=== PATIENT | female | born 1970 | race Caucasian/White ===

== ENCOUNTER 2019-11-27 13:43 | Outpatient (CLI) | payer OTHER ==
--- NOTE | 2019-11-27 15:03 | MMO ---
Bilateral MAMMO Bilat Diag [facility]. CLINICAL HISTORY: Patient is 49 years old and is seen for diagnostic exam. The patient has the following family history of breast cancer: mother, at age 45. The patient has a history of malignant (generic) in the left breast at age 31. The patient has a history of left Lumpectomy in March, - malignant and left Lumpectomy in January, - fibroadenoma. VIEWS: The views performed were: bilateral craniocaudal with tomosynthesis; bilateral mediolateral oblique with tomosynthesis; and bilateral mediolateral with tomosynthesis. FILMS COMPARED: The present examination has been compared to prior imaging studies performed at [facility] on 05/29/2010 and 11/27/2019. This study has been interpreted with the assistance of computer-aided detection. MAMMOGRAM FINDINGS: The breasts are heterogeneously dense, which could obscure a lesion on mammography. Finding 1: There are benign appearing calcifications seen in both breasts. Finding 2: There is a post-surgical scar seen in the left breast. There are no suspicious masses, suspicious calcifications, or new areas of architectural distortion. IMPRESSION: THERE IS NO MAMMOGRAPHIC EVIDENCE OF MALIGNANCY. A ROUTINE FOLLOW-UP MAMMOGRAM IN 1 YEAR IS RECOMMENDED. THE RESULTS OF THIS EXAM WERE SENT TO THE PATIENT. ACR BI-RADS Category 2 - Benign finding MAMMOGRAPHY NOTE: 1. A negative mammogram report should not delay a biopsy if a dominant of clinically suspicious mass is present. 2. Approximately 10% to 15% of breast cancers are not detected by mammography. 3. Adenosis and dense breasts may obscure an underlying neoplasm. Reported by: WALLY RUTH MD Electonically Signed: [id number]
--- NOTE | 2019-11-27 15:16 | ULT ---
BILATERAL BREAST SONOGRAM: HISTORY: Left breast cancer. Right breast lump. FINDINGS: Sonographic evaluation of the superolateral aspect of the right breast in the region of palpable conc varun shows scattered fibroglandular densities. No solid or cystic masses. No areas of shadowing. Sonographic survey of the left breast shows scattered fibroglandular densities. Parenchymal scarring from prior surgery. No solid or cystic masses. No suspicious shadowing. IMPRESSION: 1. Postoperative changes left breast. No significant abnormalities of either breast demonstrated. 2. BIRADS category 2. Benign findings. Please see separate report for diagnosis mammography perfor med on the same date. POS: [facility]
== END 2019-11-27 13:44 | disposition home or self-care (01) ==
LOC: BICMAMMO 13:43
PROVIDERS: ATTEND Internal Medicine Medical Oncology
DX: Z08 Encounter for follow-up examination after completed treatment for malignant neoplasm (principal); Z85.3 Personal history of malignant neoplasm of breast
CPT/HCPCS: 77066; G0279

== ENCOUNTER 2020-12-12 14:46 | Outpatient (CLI) | payer OTHER ==
--- NOTE | 2020-12-12 16:43 | MRI ---
EXAM: MRI of the breasts without and with contrast HISTORY: BRCA 1 positive. Status post left breast cancer status post lumpectomy, radiation, and chemo therapy. Family history of breast cancer. Palpable masses in both breasts. COMPARISON: Mammogram and ultrasound 11/27/2019 TECHNIQUE: Multiplanar multisequence MR images were obtained of the breasts without and with IV contr ast. 3-D MIP reformats and contrast enhancement curves were generated on a [employer] workstation. FINDINGS: Diffusely dense breast parenchyma is seen. Minimal background parenchymal enhancement is seen. Vitamin E tablets are placed at the areas of palpable concern in the outer aspect of the right breast and upper aspect of the left breast. There is a 1.2 cm spiculated mass with rim-like enhancement in the upper aspect of the left central b reast. This demonstrates a type II plateau enhancement curve. This mass was not seen on the prior mammogram. No abnormal enhancement is seen in the right breast. No axillary adenopathy is seen. No internal mammary lymph nodes are identified. The visualized liver is unremarkable. The visualized bones are unremarkable. IMPRESSION: BI-RADS Category 4-suspicious findings. A repeat bilateral mammogram and second look left breast ultr asound is recommended for evaluation of the spiculated mass in the left breast to see if this would be amenable for ultrasound-guided biopsy.
== END 2020-12-12 14:47 | disposition home or self-care (01) ==
LOC: BICMRI 14:46
PROVIDERS: ATTEND Internal Medicine Medical Oncology
DX: C50.912 Malignant neoplasm of unspecified site of left female breast (principal); Z15.01 Genetic susceptibility to malignant neoplasm of breast
CPT/HCPCS: A9577; C8908

== ENCOUNTER → 2020-12-26 | Day surgery (SDC) | payer OTHER ==
--- NOTE | 2020-12-26 13:09 | ULT ---
US Breast Limited Lt: 12/26/2020 12:00 AM CLINICAL INDICATION: 12:00 left breast suspicious mass on MRI. COMPARISON: MRI of the breasts to 1221 TECHNIQUE: Multiplanar grayscale and color Doppler images were obtained of the breast. FINDINGS: There is a suspicious shadowing spiculated mass at the 12:00 position of the left breast approximatel y 2 cm from the nipple measuring 1.1 cm in greatest dimension. IMPRESSION: BI-RADS Category 4-suspicious findings. An ultrasound-guided biopsy is recommended.
--- NOTE | 2020-12-26 13:46 | MMO ---
FILMS COMPARED: The present examination has been compared to prior imaging studies performed at [facility] on 11/27/2019, 12/12/2020 and 12/26/2020. MAMMOGRAM FINDINGS: The breast is heterogeneously dense, which could obscure a lesion on mammography. There is an irregular mass with spiculated margins and associated biopsy clip seen in the left breast at 12 o'clock. IMPRESSION: MASS IN THE LEFT BREAST IS CONFIRMED UTILIZING POST PROCEDURE MAMMOGRAM. Reported by: CARMEN MOORE MD Electonically Signed: [id number]
--- NOTE | 2020-12-26 13:50 | ULT ---
PREPROCEDURE DIAGNOSIS: Left 12:00 breast mass POST PROCEDURE DIAGNOSIS: Same PROCEDURE: Ultrasound-guided left 12:00 breast mass biopsy FACTORY FOCUS TECHNICIAN: Princess ANESTHESIA: 11 mL of buffered 1% lidocaine. SPECIMEN: 5 -14-gauge core biopsy specimens TECHNIQUE: Prior to the procedure, the risks and benefits of an ultrasound guided breast mass biopsy were explai refugio to the patient which consented fully to the procedure. The patient's breast mass was again identified with ultrasound. This breast was prepped and draped in the usual sterile fashion. Lidocaine was used to anesthetize the skin and soft tissues surrounding the mass. A small skin incis ion was made allowing for passage of the core biopsy device. This device was then placed using ultrasound guidance and multiple specimens were obtained of the mass. The specimens were placed in formalin. At the completion of the procedure, a biopsy clip was placed i mmediately adjacent to the mass. A postprocedural mammogram was performed showing the biopsy clip immediately adjacent to the left 12: 00 breast mass. The patient tolerated the procedure well without immediate post procedure complication. IMPRESSION: Status post ultrasound-guided breast mass biopsy.
== END ==
LOC: BICULT 12:50
PROVIDERS: ATTEND Internal Medicine Medical Oncology
PROC: 0H9U0ZX Drainage of Left Breast, Open Approach, Diagnostic (ICD-10-PCS; principal; 2020-12-26)
DX: C50.812 Malignant neoplasm of overlapping sites of left female breast (principal); Z88.2 Allergy status to sulfonamides
CPT/HCPCS: 19083; 88305; 88341; 88342

== ENCOUNTER 2021-02-11 13:41 | Outpatient (CLI) | payer OTHER ==
[2021-02-11 14:38] LABS: #Basophils 0.1 10x3/uL (0.0-0.2); #Eosinphils 0.3 10x3/uL (0.0-0.5); #Monocytes 0.8 10x3/uL (0.0-1.1); #Neutrophils 5.2 10x3/uL (1.5-8.4); %Eosinophils 2.8 % (0.0-6.0); %Lymphocytes 30.9 % (18.0-47.0); %Monocytes 8.9 % (0.0-10.0); %Neutrophils 55.8 % (40.0-75.0); Hemoglobin 13.3 g/dL (12.0-15.5); Mean Corpuscular HGB CONC 32.9 g/dL (32.0-36.0); Mean Corpuscular Hemoglobin 29.9 pg (27.0-33.0); Mean Corpuscular Volume 90.8 fl (81.6-98.3); Mean Platelet Volume 9.6 fl (7.4-10.4); Platelet Count 351 10x3/uL (150-450); RBC Distribution Width 12.1 % (11.5-14.5); Red Blood Cell (RBC) Count 4.45 10x6/uL (3.90-5.03); White Blood Cell (WBC) Count 9.4 10x3/uL (3.5-10.5)
[2021-02-11 14:57] LABS: Anion Gap 19 mmol/L (10-20); BUN (Urea Nitrogen) 18 mg/dL (9.8-20.1); Calc. Creatinine Clearance 0 mL/min (70-130); Calcium 9.8 mg/dL (7.8-10.44); Carbon Dioxide 23 mmol/L (22-29); Chloride 103 mmol/L (98-107); Glucose 90 mg/dL (70-105); Potassium 4.6 mmol/L (3.5-5.1); Sodium 140 mmol/L (136-145)
[2021-02-12 04:12] LABS: SARS-CoV-2 PCR by NAA Not Detected (NotDetected)
== END 2021-02-11 13:42 | disposition home or self-care (01) ==
LOC: LABBT 13:41
PROVIDERS: ATTEND Specialist
DX: Z01.812 Encounter for preprocedural laboratory examination (principal); C50.912 Malignant neoplasm of unspecified site of left female breast; Z20.822 Contact with and (suspected) exposure to COVID-19
CPT/HCPCS: 80048; 85025; 87635; U0003; U0005

== ENCOUNTER 2021-02-13 10:02 | Outpatient (CLI) | payer OTHER ==
[~2021-02-13 10:02] MED LIST: Iopamidol 370 76% 100 ML VIAL ONE
== END 2021-02-13 10:03 | disposition home or self-care (01) ==
LOC: CT 10:02
PROVIDERS: ATTEND Internal Medicine Hematology & Oncology
DX: C50.412 Malignant neoplasm of upper-outer quadrant of left female breast (principal); N63.20 Unspecified lump in the left breast, unspecified quadrant
CPT/HCPCS: 71260; 74177; 78306; A9503; Q9967

== ENCOUNTER 2021-02-16 06:01 | Day surgery (SDC) | payer OTHER ==
[2021-02-13 09:43] VITALS: BMI 22.6
[2021-02-16] MEDS ORDERED: PROPOFOL 40 ML ONE (06:24)
[2021-02-16] MEDS ORDERED: Midazolam HCl 2 mg/2 ml Vial ONE (06:24)
[2021-02-16] MEDS ORDERED: Famotidine/PF 20 mg/2ml Vial ONE (06:24)
[2021-02-16] MEDS ORDERED: Fentanyl 100 MCG/2 ML VIAL ONE (06:24)
[2021-02-16] MEDS ORDERED: Ketorolac Tromethamine 30 MG/ML VIAL ONE (06:32)
[2021-02-16] MEDS ORDERED: Acetaminophen 500 MG TAB ONE (06:32)
[2021-02-16] MEDS ORDERED: Bupivacaine 0.25% HCL 30 ML VIAL ONE (06:34)
[2021-02-16] MEDS ORDERED: Lidocaine 2% w/Epinephrine 1:200K 20 ML VIAL ONE (06:34)
[2021-02-16] MEDS ORDERED: Ondansetron PF 4 MG/2 ML Vial ONE ×2 (07:05→08:05)
[2021-02-16] MEDS ORDERED: Dexamethasone 4 mg/ml Vial ONE (07:05)
[2021-02-16] MEDS ORDERED: Metoclopramide HCl 10 MG/2 ML VIAL ONE ×2 (07:05→08:05)
[2021-02-16] MEDS ORDERED: Lidocaine 1% PF 5 ML VIAL ONE (08:05)
[2021-02-16] MEDS ORDERED: Dexamethasone 20 MG/5 ML VIAL ONE (08:05)
[2021-02-16] MEDS ORDERED: PHENYLEPHRINE-NS 100 MCG/ML 10 ML SYRINGE ONE (08:05)
== END 2021-02-16 09:39 | disposition home or self-care (01) ==
LOC: SDC 06:01
PROVIDERS: ATTEND Specialist
PROC: 02HV33Z Insertion of Infusion Device into Superior Vena Cava, Percutaneous Approach (ICD-10-PCS; principal; 2021-02-16)
DX: C50.912 Malignant neoplasm of unspecified site of left female breast (principal); J45.909 Unspecified asthma, uncomplicated; E78.5 Hyperlipidemia, unspecified; Z17.1 Estrogen receptor negative status [ER-]; Z79.899 Other long term (current) drug therapy; Z88.2 Allergy status to sulfonamides; Z91.041 Radiographic dye allergy status
CPT/HCPCS: 71045; C1788; J0690; J1100; J1642; J1885; J2250; J2405; J2704; J2765; J3010; S0020; S0028

== ENCOUNTER 2021-02-26 18:19 | Observation (INO) | payer OTHER ==
[2021-02-26 18:50] LABS: Hemoglobin 11.9 g/dL (12.0-16.0); Mean Corpuscular Hemoglobin 29.8 pg (27.0-31.0); Mean Corpuscular Volume 90.2 fL (78.0-98.0); Mean Platelet Volume 7.2 fL (7.4-10.4); Platelet Count 275 thou/uL (130-400); RBC Distribution Width 11.3 % (11.5-14.5); Red Blood Cell (RBC) Count 3.99 mill/uL (4.20-5.40); White Blood Cell (WBC) Count 43.4 thou/uL (4.8-10.8)
[2021-02-26 18:52] LABS: Prothrombin Time 12.2 sec (12.0-14.7)
[2021-02-26 18:54] LABS: INR-International Normal Ratio 0.9
[2021-02-26 19:06] LABS: Band 11 % (5-11); Lymphocytes 15 % (21-51); MDiff Complete? YES; Metamyelocyte 7 % (0-0); Monocytes 3 % (0-10); Myelocyte 5 % (0-0); Neutrophil 57 % (42-75); Nucleated RBC 1 % (0); Platelet Morphology Comment Appears Adequate; Polychromasia SLIGHT = 2-3 cells (100X) (0-2/hpf); Promyelocytes 1 % (0-0); Reactive Lymphocytes 1 % (0-10)
[2021-02-26 19:24] LABS: ALT (SGPT) 50 U/L (8-55); AST (SGOT) 33 U/L (5-34); Albumin 4.1 g/dL (3.5-5.0); Alkaline Phosphatase 93 U/L (40-110); Anion Gap 18 mmol/L (10-20); BUN (Urea Nitrogen) 17 mg/dL (9.8-20.1); Bilirubin, Total 0.3 mg/dL (0.2-1.2); Calc. Creatinine Clearance 0 mL/min (70-130); Calcium 8.9 mg/dL (7.8-10.44); Carbon Dioxide 21 mmol/L (22-29); Chloride 99 mmol/L (98-107); Globulin 3.3 g/dL (2.4-3.5); Glucose 98 mg/dL (70-105); Potassium 3.6 mmol/L (3.5-5.1); Protein, Total 7.4 g/dL (6.0-8.3); Sodium 134 mmol/L (136-145)
[2021-02-26] MEDS ORDERED: cefTRIAXone\\ROCEPHIN 2 GM VIAL ONE (19:28)
[2021-02-26 19:30] LABS: Bilirubin Negative (Negative); Blood, Urine Negative (Negative); Clarity Clear (Clear); Glucose, Urine (Dipstick) Normal (Negative); Ketone, Urine Negative (Negative); Leukocyte Negative Leu/uL (Negative); Nitrite Negative (Negative); Protein, Urine (Dipstick) Negative (Neg-Trace); Specific Gravity, Urine 1.007 (1.002-1.036); Urobilinogen Normal mg/dL (Less than 2)
[2021-02-26] MEDS ORDERED: Ondansetron ODT 4 MG TAB PO PRN (21:29)
[2021-02-26] MEDS ORDERED: Acetaminophen 325 MG TAB PO PRN (21:29)
[2021-02-26] MEDS ORDERED: Ondansetron PF 4 MG/2 ML Vial IVP PRN (21:29)
[2021-02-26] MEDS ORDERED: Citalopram 10 MG TAB PO SCH (23:15)
[2021-02-27 00:27] LABS: Troponin I Less than 0.010 ng/mL (< 0.028)
[2021-02-27 01:06] VITALS: BMI 22.7
[2021-02-27 03:44] LABS: SARS-CoV-2 NAA Rapid Test Not Detected (NotDetected)
[2021-02-27 05:33] LABS: Hemoglobin 11.4 g/dL (12.0-16.0); Mean Corpuscular HGB CONC 33.9 g/dL (32.0-36.0); Mean Corpuscular Hemoglobin 30.7 pg (27.0-31.0); Mean Corpuscular Volume 90.6 fL (78.0-98.0); Mean Platelet Volume 7.3 fL (7.4-10.4); Platelet Count 236 thou/uL (130-400); RBC Distribution Width 11.3 % (11.5-14.5); White Blood Cell (WBC) Count 37.6 thou/uL (4.8-10.8)
[2021-02-27 05:44] LABS: Lymphocytes 12 % (21-51); MDiff Complete? YES; Metamyelocyte 5 % (0-0); Monocytes 4 % (0-10); Neutrophil 79 % (42-75); Platelet Morphology Comment Appears Adequate
[2021-02-27 05:47] LABS: Anion Gap 11 mmol/L (10-20); BUN (Urea Nitrogen) 16 mg/dL (9.8-20.1); Calc. Creatinine Clearance 92 mL/min (70-130); Calcium 8.8 mg/dL (7.8-10.44); Carbon Dioxide 25 mmol/L (22-29); Cardiac Risk 3.5 (Less than 4.5); Chloride 106 mmol/L (98-107); Cholesterol 166 mg/dl (< 200 Desired); Glucose 96 mg/dL (70-105); HDL Cholesterol 48 mg/dL (>60 Neg Risk); LDL Cholesterol, Calculated 95 mg/dL; Sodium 138 mmol/L (136-145); Triglycerides 114 mg/dL (Less than 150)
[2021-02-27] MEDS ORDERED: Citalopram 10 MG TAB PO SCH ×2 (09:00)
[2021-02-27] MEDS ORDERED: Aspirin 81 mg Enteric Coated Tablet PO SCH (09:00)
[2021-02-27] MEDS ORDERED: Enoxaparin Sodium 40 MG/0.4 ML SYRINGE SC SCH (09:00)
[2021-02-27] MEDS ORDERED: Magnevist 469MG/ML 20 ML VIAL ONE (15:30)
[2021-02-27 15:40] VITALS: BP 109/72; TEMP 98.3
[2021-02-27] MEDS ORDERED: Clindamycin 150 MG CAP PO SCH (17:00)
== END 2021-02-27 17:50 | disposition home or self-care (01) ==
LOC: ERS 18:19 → 2SE 20:48
PROVIDERS: ADMIT Student in an Organized Health Care Education/Training Program; ATTEND Student in an Organized Health Care Education/Training Program
DX: R20.2 Paresthesia of skin (principal); R47.01 Aphasia; N90.7 Vulvar cyst; J45.909 Unspecified asthma, uncomplicated; I07.1 Rheumatic tricuspid insufficiency; C50.412 Malignant neoplasm of upper-outer quadrant of left female breast; E78.5 Hyperlipidemia, unspecified; K21.9 Gastro-esophageal reflux disease without esophagitis; D72.828 Other elevated white blood cell count; T45.8X5A Adverse effect of other primarily systemic and hematological agents, initial encounter; Z17.1 Estrogen receptor negative status [ER-]; Z79.899 Other long term (current) drug therapy; Z88.1 Allergy status to other antibiotic agents; Z88.2 Allergy status to sulfonamides; Z91.041 Radiographic dye allergy status; Z20.822 Contact with and (suspected) exposure to COVID-19
CPT/HCPCS: 36415; 36416; 70450; 70553; 71045; 80048; 80053; 80061; 81003; 83735; 83880; 84484; 85025; 85060; 85610; 85730; 87040; 87086; 93005; 93306; 93880; 95712; 95819; 95957; 96365; 96372; A9579; G0378; J0696; J1650; U0002

== ENCOUNTER 2021-05-22 09:32 | Outpatient (CLI) | payer OTHER | END 2021-05-22 09:33 | disposition home or self-care (01) | LOC: BICMAMMO 09:32 | PROVIDERS: ATTEND Surgery | DX: C50.812 Malignant neoplasm of overlapping sites of left female breast (principal); Z80.3 Family history of malignant neoplasm of breast | CPT/HCPCS: 77066; G0279 ==

== ENCOUNTER 2021-06-07 19:41 | Emergency (ER) | payer OTHER ==
[~2021-06-07 19:41] MED LIST changes: -Iopamidol 370 76% 100 ML VIAL ONE; +Iopamidol-370 76% 500 ML 1 ML ONE
[2021-06-07 21:04] LABS: ALT (SGPT) 24 U/L (8-55); AST (SGOT) 20 U/L (5-34); Albumin 4.1 g/dL (3.5-5.0); Alkaline Phosphatase 81 U/L (40-110); Anion Gap 11 mmol/L (10-20); BUN (Urea Nitrogen) 15 mg/dL (9.8-20.1); Bilirubin, Total 0.4 mg/dL (0.2-1.2); Calc. Creatinine Clearance 0 mL/min (70-130); Calcium 8.9 mg/dL (7.8-10.44); Carbon Dioxide 28 mmol/L (22-29); Chloride 102 mmol/L (98-107); Globulin 2.6 g/dL (2.4-3.5); Glucose 91 mg/dL (70-105); Potassium 4.1 mmol/L (3.5-5.1); Protein, Total 6.7 g/dL (6.0-8.3); Sodium 137 mmol/L (136-145)
[2021-06-07 21:21] LABS: Hemoglobin 10.6 g/dL (12.0-16.0); Mean Corpuscular HGB CONC 34.3 g/dL (32.0-36.0); Mean Platelet Volume 7.1 fL (7.4-10.4); Platelet Count 216 thou/uL (130-400); RBC Distribution Width 13.6 % (11.5-14.5); Red Blood Cell (RBC) Count 3.03 mill/uL (4.20-5.40); White Blood Cell (WBC) Count 6.3 thou/uL (4.8-10.8)
[2021-06-07 21:46] LABS: Band 6 % (5-11); Lymphocytes 25 % (21-51); MDiff Complete? YES; Macrocytosis SLIGHT = 6-15 cells (100X) (0-5/hpf); Metamyelocyte 1 % (0-0); Monocytes 5 % (0-10); Neutrophil 63 % (42-75); Platelet Morphology Comment Appears Adequate
[2021-06-07] MEDS ORDERED: diphenhydrAMINE 25 MG CAP ONE (22:11)
[2021-06-07] MEDS ORDERED: methylPREDNISolone Sod Succ/PF 125 MG/2 ML VIAL ONE (22:11)
== END 2021-06-08 00:45 | disposition home or self-care (01) ==
LOC: ERS 19:41
DX: R00.2 Palpitations (principal); J45.909 Unspecified asthma, uncomplicated; Z79.899 Other long term (current) drug therapy
CPT/HCPCS: 71045; 71275; 80053; 83735; 84443; 84484; 85025; 85379; 93005; 94760; 96374; 96375; J2930; Q0163

== ENCOUNTER 2021-07-07 13:10 | Outpatient (CLI) | payer OTHER ==
[2021-07-07 13:54] LABS: #Eosinphils 0.1 10x3/uL (0.0-0.5); #Monocytes 0.5 10x3/uL (0.0-1.1); #Neutrophils 3.6 10x3/uL (1.5-8.4); %Basophils 0.4 % (0.0-2.0); %Lymphocytes 19.3 % (18.0-47.0); %Monocytes 10.1 % (0.0-10.0); Hemoglobin 11.2 g/dL (12.0-15.5); Mean Corpuscular HGB CONC 31.8 g/dL (32.0-36.0); Mean Corpuscular Hemoglobin 32.7 pg (27.0-33.0); Mean Corpuscular Volume 102.6 fl (81.6-98.3); Mean Platelet Volume 8.4 fl (7.4-10.4); Platelet Count 216 10x3/uL (150-450); RBC Distribution Width 13.2 % (11.5-14.5); Red Blood Cell (RBC) Count 3.43 10x6/uL (3.90-5.03); White Blood Cell (WBC) Count 5.2 10x3/uL (3.5-10.5)
[2021-07-07 14:11] LABS: Anion Gap 15 mmol/L (10-20); BUN (Urea Nitrogen) 12 mg/dL (9.8-20.1); Calc. Creatinine Clearance 0 mL/min (70-130); Calcium 9.8 mg/dL (7.8-10.44); Carbon Dioxide 25 mmol/L (22-29); Chloride 105 mmol/L (98-107); Glucose 93 mg/dL (70-105); Potassium 4.8 mmol/L (3.5-5.1); Sodium 140 mmol/L (136-145)
[2021-07-08 11:16] LABS: SARS-CoV-2 PCR by NAA Not Detected (NotDetected)
== END 2021-07-07 13:11 | disposition home or self-care (01) ==
LOC: LABBT 13:10
PROVIDERS: ATTEND Specialist
DX: Z01.812 Encounter for preprocedural laboratory examination (principal); C50.912 Malignant neoplasm of unspecified site of left female breast; Z20.822 Contact with and (suspected) exposure to COVID-19
CPT/HCPCS: 80048; 85025; U0003; U0005

== ENCOUNTER 2021-07-09 07:41 | Day surgery (SDC) | payer OTHER ==
[2021-07-08 10:26] VITALS: BMI 25.0
[2021-07-09] MEDS ORDERED: Ketorolac Tromethamine 30 MG/ML VIAL ONE (11:18)
[2021-07-09] MEDS ORDERED: Acetaminophen 500 MG TAB ONE (11:18)
[2021-07-09] MEDS ORDERED: Midazolam HCl 2 mg/2 ml Vial ONE (11:39)
[2021-07-09] MEDS ORDERED: Fentanyl 100 MCG/2 ML VIAL ONE ×2 (11:39→14:28)
[2021-07-09] MEDS ORDERED: Lidocaine 1% w/Epinephrine 1:100K 30 ML VIAL ONE (11:41)
[2021-07-09] MEDS ORDERED: Bupivacaine 0.25% HCL 30 ML VIAL ONE (11:41)
[2021-07-09] MEDS ORDERED: Isosulfan Blue 50 MG/5 ML VIAL ONE (11:42)
[2021-07-09] MEDS ORDERED: PHENYLEPHRINE-NS 100 MCG/ML 10 ML SYRINGE ONE (12:16)
[2021-07-09] MEDS ORDERED: Lidocaine 1% PF 5 ML VIAL ONE (12:16)
[2021-07-09] MEDS ORDERED: PROPOFOL 200 MG/20 ML VIAL ONE (12:16)
[2021-07-09] MEDS ORDERED: Ondansetron PF 4 MG/2 ML Vial ONE (14:24)
== END 2021-07-09 16:17 | disposition home or self-care (01) ==
LOC: SDC 07:41
PROVIDERS: ATTEND Specialist
PROC: 0HBU0ZZ Excision of Left Breast, Open Approach (ICD-10-PCS; principal; 2021-07-09)
PROC: 07B60ZX Excision of Left Axillary Lymphatic, Open Approach, Diagnostic (ICD-10-PCS; principal; 2021-07-09)
DX: C50.812 Malignant neoplasm of overlapping sites of left female breast (principal); J45.909 Unspecified asthma, uncomplicated; E78.5 Hyperlipidemia, unspecified; Z17.1 Estrogen receptor negative status [ER-]; Z86.010 Personal history of colon polyps; Z79.899 Other long term (current) drug therapy; Z88.1 Allergy status to other antibiotic agents; Z88.2 Allergy status to sulfonamides; Z91.041 Radiographic dye allergy status
CPT/HCPCS: 76098; 78195; 88305; 88307; 88342; A9541; J0690; J1885; J2250; J2405; J2704; J3010; Q9968; S0020

== ENCOUNTER 2021-09-09 18:14 | Emergency (ER) | payer OTHER ==
[2021-09-09 19:10] LABS: #Eosinphils 0.2 thou/uL (0.0-0.7); #Lymphocytes 1.7 thou/uL (1.20-3.40); #Monocytes 0.5 thou/uL (0.11-0.59); #Neutrophils 3.1 thou/uL (1.40-6.50); %Basophils 0.5 % (0.0-1.0); %Eosinophils 3.7 % (0.0-10.0); %Lymphocytes 31.3 % (21.0-51.0); %Monocytes 8.3 % (0.0-10.0); %Neutrophils 56.3 % (42.0-75.0); Mean Corpuscular HGB CONC 34.5 g/dL (32.0-36.0); Mean Corpuscular Hemoglobin 31.8 pg (27.0-31.0); Mean Platelet Volume 6.6 fL (7.4-10.4); Platelet Count 269 thou/uL (130-400); RBC Distribution Width 11.9 % (11.5-14.5); Red Blood Cell (RBC) Count 3.79 mill/uL (4.20-5.40); White Blood Cell (WBC) Count 5.5 thou/uL (4.8-10.8)
[2021-09-09 19:30] LABS: ALT (SGPT) 16 U/L (8-55); AST (SGOT) 24 U/L (5-34); Albumin 4.3 g/dL (3.5-5.0); Alkaline Phosphatase 70 U/L (40-110); Anion Gap 16 mmol/L (10-20); BUN (Urea Nitrogen) 20 mg/dL (9.8-20.1); Bilirubin, Total 0.4 mg/dL (0.2-1.2); Calc. Creatinine Clearance 0 mL/min (70-130); Calcium 9.5 mg/dL (7.8-10.44); Carbon Dioxide 21 mmol/L (22-29); Chloride 102 mmol/L (98-107); Globulin 3.3 g/dL (2.4-3.5); Glucose 94 mg/dL (70-105); Potassium 4.3 mmol/L (3.5-5.1); Protein, Total 7.6 g/dL (6.0-8.3); Sodium 135 mmol/L (136-145)
[2021-09-09] MEDS ORDERED: diphenhydrAMINE 50 MG/ML VIAL ONE (20:08)
[2021-09-09] MEDS ORDERED: Famotidine/PF 20 mg/2ml Vial ONE (20:09)
[2021-09-09] MEDS ORDERED: methylPREDNISolone Sod Succ 40 MG VIAL ONE (20:09)
[2021-09-09] MEDS ORDERED: Ondansetron PF 4 MG/2 ML Vial ONE (21:11)
[2021-09-09 22:10] LABS: Bilirubin Negative (Negative); Blood, Urine Negative (Negative); Clarity Clear (Clear); Glucose, Urine (Dipstick) Normal (Negative); Ketone, Urine Negative (Negative); Leukocyte Negative Leu/uL (Negative); Nitrite Negative (Negative); Protein, Urine (Dipstick) Negative (Neg-Trace); Specific Gravity, Urine 1.013 (1.002-1.036); Urobilinogen Normal mg/dL (Less than 2); pH, Urine 6.5 (5.0-9.0)
== END 2021-09-09 23:10 | disposition home or self-care (01) ==
LOC: ERS 18:14
DX: E86.0 Dehydration (principal); R07.9 Chest pain, unspecified; R05.9 Cough, unspecified; R06.02 Shortness of breath; R10.9 Unspecified abdominal pain; R11.2 Nausea with vomiting, unspecified; J45.909 Unspecified asthma, uncomplicated; Z79.51 Long term (current) use of inhaled steroids; Z79.899 Other long term (current) drug therapy
CPT/HCPCS: 71045; 71275; 80053; 81003; 84484; 85025; 85379; 93005; 96374; 96375; J1200; J2405; J2920; Q9967; S0028

== ENCOUNTER 2021-12-07 09:27 | Outpatient (CLI) | payer OTHER | END 2021-12-07 09:28 | disposition home or self-care (01) | LOC: BICMRI 09:27 | PROVIDERS: ATTEND Family Medicine | DX: C50.912 Malignant neoplasm of unspecified site of left female breast (principal) | CPT/HCPCS: A9577; C8908 ==

== ENCOUNTER 2022-11-16 11:12 | Outpatient (CLI) | payer OTHER | END 2022-11-16 11:13 | disposition home or self-care (01) | LOC: SCSRAD 11:12 | PROVIDERS: ATTEND Family Medicine | DX: M54.50 Low back pain, unspecified (principal); M47.816 Spondylosis without myelopathy or radiculopathy, lumbar region | CPT/HCPCS: 72100 ==

== ENCOUNTER 2023-10-19 15:30 | Emergency (ER) | payer OTHER ==
[2023-10-19 16:17] LABS: #Eosinphils 0.1 thou/uL (0.0-0.7); #Monocytes 0.7 thou/uL (0.11-0.59); #Neutrophils 2.7 thou/uL (1.40-6.50); %Basophils 0.5 % (0.0-1.0); %Eosinophils 1.6 % (0.0-10.0); %Lymphocytes 18.4 % (21.0-51.0); %Monocytes 16.8 % (0.0-10.0); %Neutrophils 62.5 % (42.0-75.0); Hematocrit 38.9 % (36.0-47.0); Mean Corpuscular HGB CONC 33.4 g/dL (32.0-36.0); Mean Corpuscular Hemoglobin 29.6 pg (27.0-31.0); Mean Corpuscular Volume 88.6 fl (78.0-98.0); Mean Platelet Volume 9.4 fL (7.4-10.4); Platelet Count 243 10x3/uL (130-400); RBC Distribution Width 12.5 % (11.5-14.5); Red Blood Cell (RBC) Count 4.39 mill/uL (4.20-5.40); White Blood Cell (WBC) Count 4.3 10x3/uL (4.8-10.8)
[2023-10-19 16:42] LABS: ALT (SGPT) 22 U/L (8-55); AST (SGOT) 26 U/L (5-34); Albumin 4.8 g/dL (3.5-5.0); Alkaline Phosphatase 79 U/L (40-110); Anion Gap 14 mmol/L (10-20); BUN (Urea Nitrogen) 17 mg/dL (9.8-20.1); Bilirubin, Total 0.3 mg/dL (0.2-1.2); Calc. Creatinine Clearance 0 mL/min (70-130); Calcium 9.2 mg/dL (7.8-10.44); Carbon Dioxide 26 mmol/L (22-29); Chloride 102 mmol/L (98-107); Estimated GFR 77; Globulin 3.6 g/dL (2.4-3.5); Glucose 107 mg/dL (70-105); Lipase 54 U/L (8-78); Potassium 3.7 mmol/L (3.5-5.1); Protein, Total 8.4 g/dL (6.0-8.3); Sodium 138 mmol/L (136-145)
[2023-10-19] MEDS ORDERED: Morphine 4 MG/ML VIAL ONE (16:49)
[2023-10-19] MEDS ORDERED: Ketorolac Tromethamine 30 MG/ML VIAL ONE (16:50)
[2023-10-19] MEDS ORDERED: Ondansetron PF 4 MG/2 ML Vial ONE (16:50)
[2023-10-19 18:56] LABS: Bacteria/HPF None Seen HPF (None Seen); Bilirubin Negative (Negative); Blood, Urine Negative (Negative); CAUTI Indications for Culture Pelvic or flank pain; Clarity Clear (Clear); Glucose, Urine (Dipstick) Normal (Negative); Ketone, Urine Negative (Negative); Leukocyte Negative Leu/uL (Negative); Nitrite Negative (Negative); Protein, Urine (Dipstick) Negative (Neg-Trace); RBC/HPF 0-3 HPF (0-3); Specific Gravity, Urine 1.011 (1.002-1.036); Squamous Epithelial None Seen HPF (0-3); Urobilinogen Normal mg/dL (Less than 2); WBC/HPF 0-3 HPF (0-3)
[2023-10-19 19:14] LABS: Urine Culture Reflex No No
== END 2023-10-19 19:51 | disposition home or self-care (01) ==
LOC: ERS 15:30
DX: K80.50 Calculus of bile duct without cholangitis or cholecystitis without obstruction (principal)
CPT/HCPCS: 74176; 76705; 80053; 81001; 83690; 85025; 93005; 94760; 96374; 96375; J1885; J2270; J2405

== ENCOUNTER 2023-11-28 12:51 | Outpatient (CLI) | payer OTHER ==
[2023-11-28] MEDS ORDERED: Sincalide 5 MCG VIAL ONE (14:58)
[2023-11-28] MEDS ORDERED: Bacteriostatic Normal Saline 30 ML VIAL ONE (14:59)
[2023-11-28] MEDS ORDERED: Sterile Water 10 ML ONE (14:59)
== END 2023-11-28 12:52 | disposition home or self-care (01) ==
LOC: NM 12:51
PROVIDERS: ATTEND Family Medicine
DX: R10.11 Right upper quadrant pain (principal)
CPT/HCPCS: 78227; A9537; J2805

== ENCOUNTER 2024-11-08 11:40 | Emergency (ER) | payer OTHER ==
[2024-11-08] MEDS ORDERED: Famotidine 20 MG TAB ONE (12:09)
[2024-11-08] MEDS ORDERED: Milk Of Magnesia 30 ML UDCUP ONE (12:09)
[2024-11-08] MEDS ORDERED: Lidocaine Viscous Sol 2% 15 ml UD Cup ONE (12:13)
[2024-11-08 12:14] LABS: #Basophils 0.03 10x3/uL (0.0-0.2); %Basophils 0.5 % (0.0-1.0); %Eosinophils 6.5 % (0.0-10.0); %Lymphocytes 25.1 % (21.0-51.0); %Monocytes 7.4 % (0.0-10.0); %Neutrophils 60.3 % (42.0-75.0); Hematocrit 40.5 % (36.0-47.0); Hemoglobin 13.4 g/dL (12.0-16.0); Mean Corpuscular HGB CONC 33.1 g/dL (32.0-36.0); Mean Corpuscular Hemoglobin 28.2 pg (27.0-31.0); Mean Corpuscular Volume 85.3 fL (78.0-98.0); Mean Platelet Volume 9.3 fL (7.4-10.4); Platelet Count 327 10x3/uL (130-400); RBC Distribution Width 12.6 % (11.5-14.5); Red Blood Cell (RBC) Count 4.75 mill/uL (4.20-5.40)
[2024-11-08 12:36] LABS: Troponin I Less than 0.010 ng/mL (< 0.028)
[2024-11-08 12:58] LABS: Albumin 4.5 g/dL (3.5-5.0); Chloride 101 mmol/L (98-107); Potassium 3.8 mmol/L (3.5-5.1); Sodium 136 mmol/L (136-145)
[2024-11-08 12:59] LABS: Globulin 4.2 g/dL (2.4-3.5); Glucose 95 mg/dL (70-105); Protein, Total 8.7 g/dL (6.0-8.3)
[2024-11-08 13:00] LABS: Anion Gap 14 mmol/L (10-20); Carbon Dioxide 25 mmol/L (22-29)
[2024-11-08 13:02] LABS: Alkaline Phosphatase 75 U/L (40-110); Bilirubin, Total 0.5 mg/dL (0.2-1.2)
[2024-11-08 13:03] LABS: BUN (Urea Nitrogen) 15 mg/dL (9.8-20.1)
[2024-11-08 13:05] LABS: ALT (SGPT) 17 U/L (8-55); AST (SGOT) 19 U/L (5-34)
[2024-11-08 13:38] LABS: Calc. Creatinine Clearance 0 mL/min (70-130); Estimated GFR 86
== END 2024-11-08 15:08 | disposition home or self-care (01) ==
LOC: ERS 11:40
DX: K21.9 Gastro-esophageal reflux disease without esophagitis (principal); F41.9 Anxiety disorder, unspecified
CPT/HCPCS: 71045; 80053; 84484; 85025; 93005; 94760